=== PATIENT | female | born 1995 | race African-American/Black ===

== ENCOUNTER 2017-10-21 15:59 | Emergency (ER) | payer OTHER ==
[2017-10-21] MEDS: ONDANSETRON 4 MG ORAL DISINTEGRATING TAB (S0181) PO (17:06)
[2017-10-21] MEDS: ONDANSETRON 4 MG ORAL DISINTEGRATING TAB (Q0162 PER 1MG) PO (17:06)
[2017-10-21] MEDS: NAPROXEN 250 MG TAB PO ×2 (17:06)
== END 2017-10-21 18:36 | disposition home or self-care (01) ==
LOC: M ED 15:59
DX: S06.0X0A Concussion without loss of consciousness, initial encounter (principal); W22.8XXA Striking against or struck by other objects, initial encounter; Y92.9 Unspecified place or not applicable; Y93.9 Activity, unspecified; Y99.1 Military activity; Z79.899 Other long term (current) drug therapy
CPT/HCPCS: 70450; Q0162